=== PATIENT | female | born 1995 | race Caucasian/White ===

== ENCOUNTER 2023-07-08 09:55 | Emergency (ER) | payer OTHER, SELFPAY ==
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
[2023-07-08 09:58] VITALS: BP 127/81; PULSE 103; RESP 20; TEMP 36.8; O2SAT 99; BMI 20.1
[2023-07-08 10:40] VITALS: BP 105/73; PULSE 96; RESP 18; TEMP 36.9; O2SAT 99
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
--- NOTE | 2023-07-08 11:48 | PC.NURSE ---
urine obtained and sent to lab. pt awaiting CT.
--- NOTE | 2023-07-08 11:52 | PC.NURSE ---
pt to CT.
[2023-07-08 12:06] LABS: UPreg QC Valid YES; Urine Pregnancy NEGATIVE (NEGATIVE)
[2023-07-08 15:29] VITALS: BP 110/57; PULSE 72; RESP 16; O2SAT 100
== END 2023-07-08 15:30 | disposition home or self-care (01) ==
PROVIDERS: Nurse Practitioner Family; Emergency Provider Emergency Medicine; PCP Internal Medicine
DX: S09.90XA Unspecified injury of head, initial encounter (principal); R51.9 Headache, unspecified; M54.2 Cervicalgia; M54.6 Pain in thoracic spine; R10.12 Left upper quadrant pain; I49.8 Other specified cardiac arrhythmias; V47.5XXA Car driver injured in collision with fixed or stationary object in traffic accident, initial encounter; Y93.9 Activity, unspecified; Y92.410 Unspecified street and highway as the place of occurrence of the external cause; Y99.9 Unspecified external cause status
CPT/HCPCS: 70450; 71250; 72125; 74176; 81025; 93005; 99284